=== PATIENT | male | born 1975 | race Caucasian/White ===

== ENCOUNTER 2017-05-10 20:34 | Emergency (ER) | payer BC ==
[2017-05-10 20:49] VITALS: BP 142/88; PULSE 57; RESP 16; TEMP 99.1; O2SAT 97
[2017-05-10] MEDS ORDERED: PROPARACAINE 0.5% 15 ML OPHT DROP ONE (21:17)
[2017-05-10] MEDS ORDERED: FLUORESCEIN SODIUM 1 MG STRIP OP ONE ×2 (21:17→21:20)
[2017-05-10] MEDS ORDERED: PROPARACAINE 0.5% 15 ML OPHT DROP EACHEYE ONE (21:19)
[2017-05-10] MEDS ORDERED: OFLOXACIN 0.3% SOLN PREPACK OPHT.BTL TAKEHOME ONE (21:27)
--- NOTE | 2017-05-10 21:27 | EDPHY ---
H & P Stated Complaint: Dx'd with pink eye, worsening, possible sinus infection HPI/ROS: CHIEF COMPLAINT: Possible pinkeye HISTORY OF PRESENT ILLNESS: Patient complains of eye redness and pain over the past 6 days. Gradual onset. Constant duration. Worse in the left eye than the right. No headache. No difficulty with vision. No intolerance of light. No fever chills. He was prescribed gentamicin drops 5 days ago. He has been using these without any improvement. No worsening but no improvement. Does not wear contacts or glasses. No trauma to the eye. Feels a foreign body sensation of the left eye. Tetanus is up-to-date. Was seen at an urgent care on Thursday with the above prescription. No other associated complaints or modifying factors. REVIEW OF SYSTEMS: Ten systems reviewed and are negative unless otherwise noted in the HPI PAST MEDICAL HISTORY: Denies any medical history SOCIAL HISTORY: Nonsmoker. Lives in [place]. Visiting for a handball tournament FAMILY HISTORY: Noncontributory EXAMINATION General Appearance: Alert, no distress Head: normocephalic, atraumatic Eyes: Pupils equal and round, bilateral conjunctival injection. No hyphema. No subconjunctival hemorrhage. No consensual pain with exposure to light. No periorbital cellulitis. Floor seen performed with no uptake. There is no foreign body with lid eversion performed. No branching or dendritic lesions ENT, Mouth: Mucous membranes moist. Airway widely patent Respiratory: No retractions or distress Neurological: A&O, nonfocal, normal gait Skin: Warm and dry, no rash. No orbital or periorbital cellulitis on examination. Extremities: Nontender, no pedal edema Psychiatric: Mood and affect normal DIFFERENTIAL DIAGNOSES: Including but not limited to conjunctivitis, iritis, uveitis, cellulitis, orbital cellulitis, periorbital eyes MDM: 9:20 p.m. Bilateral conjunctivitis without any evidence of uveitis or iritis. No periorbital cellulitis. He does have an early blepharitis or stye on the left eye. There is no foreign body. No corneal abrasions with versions of the lids performed. I will switch him to ophthalmic fluoroquinolone. Discharged home with follow up with Ophthalmology tomorrow. Return here if difficulty, changes in vision, fever, redness around the eye. Patient is comfortable with this plan. SUPERVISION: Source: Patient - Personal History Current Tetanus/Diphtheria Vaccine: Yes - Medical/Surgical History Hx Asthma: No Hx Chronic Respiratory Disease: No Hx Diabetes: No Hx Cardiac Disease: No Hx Renal Disease: No Hx Cirrhosis: No Hx Alcoholism: No Hx HIV/AIDS: No Hx Splenectomy or Spleen Trauma: No Other PMH: PMHx: denies. PSHx: appy 1985 - Social History Smoking Status: Never smoked Constitutional: Initial Vital Signs Temperature (C) 99.1 F 05/10/17 20:44 Heart Rate 57 L 05/10/17 20:44 Respiratory Rate 16 05/10/17 20:44 Blood Pressure 142/88 H 05/10/17 20:44 O2 Sat (%) 97 05/10/17 20:44 O2 Delivery Mode Room Air Allergies/Adverse Reactions: No Known Allergies Allergy (Unverified 05/10/17 20:44) Home Medications: Medication Instructions Recorded Ofloxacin 0.3% [Ocuflox 0.3%] 2 drops OP QID #1 opht.btl 05/10/17 Departure - Departure Disposition: Home, Routine, Self-Care Clinical Impression: Conjunctivitis Qualifiers: Conjunctivitis type: acute Acute conjunctivitis type: unspecified Laterality: bilateral Qualified Code(s): H10.33 - Unspecified acute conjunctivitis, bilateral Condition: Good Instructions: Conjunctivitis (ED) Additional Instructions: 1. Medication as discussed 2. Follow up with Ophthalmology tomorrow, Thursday, May 11 3. Return here for any worsening symptoms or difficulty with vision Referrals: NONE *PRIMARY CARE P,. [Primary Care Provider] - As per Instructions Jen Albright MD [Non Staff Provider (MD)] - As per Instructions Prescriptions: Ofloxacin 0.3% [Ocuflox 0.3%] 2 drops OP QID #1 opht.btl
== END 2017-05-10 21:40 | disposition home or self-care (01) ==
DX: H10.33 Unspecified acute conjunctivitis, bilateral (principal)